=== PATIENT | female | born 1985 | race African-American/Black ===

== ENCOUNTER 2024-04-17 06:30 | Inpatient (IN) | payer OTHER ==
[2024-04-17] MEDS: ELECTROLYTE-148 SOLN 1,000 ML IV SCH (08:05)
[2024-04-17] MEDS ORDERED: OXYTOCIN 30 UNITS in 0.9% NS 30 UNIT/500 ML INFUS.BAG IVPB ONE (08:38)
[2024-04-17] MEDS: OXYTOCIN 30 UNITS in 0.9% NS 30 UNIT/500 ML INFUS.BAG IVPB SCH (08:45)
[2024-04-17 08:51] VITALS: BMI 39.0
[2024-04-17 09:03] LABS: BASO % 0.2 % (0-2.0); EOS % 0.8 % (0-4.5); HEMATOCRIT 38.3 % (32.4-45.2); MCHC 34.1 g/dl (32.0-36.0); MEAN CELL VOLUME 93.8 fl (80-96); MEAN PLT VOLUME 8.1 fl (7.5-11.1); MONO % 10.1 % (3.8-10.2); NEUT % 77.9 % (42.8-82.8); PLATELET COUNT 153 10^3/uL (134-434); RBC 4.08 M/mm3 (3.60-5.2); RDW 14.5 % (11.6-15.6); WHITE BLOOD COUNT 8.5 K/mm3 (4.0-10.0)
[2024-04-17 09:04] LABS: INR 0.98 (0.83-1.09); PROTHROMBIN TIME (PATIENT) 11.3 SEC (9.7-13.0)
[2024-04-17 09:06] LABS: ACTIVATED PTT 30.4 SECONDS (25.2-36.5)
[2024-04-17 09:24] LABS: POTASSIUM 4.1 mmol/L (3.5-5.1)
[2024-04-17 09:25] LABS: BLOOD UREA NITROGEN 6.5 mg/dL (7-18); CALCIUM 8.7 mg/dL (8.5-10.1)
[2024-04-17 09:29] LABS: CREATININE 0.6 mg/dL (0.55-1.3)
[2024-04-17 09:43] LABS: SYPHILIS W/ RPR CONF NON-REACTIVE (NONREACTIVE)
[2024-04-17 10:12] LABS: HIV INTERPRETATION NEGATIVE (NEGATIVE)
[2024-04-17] MEDS ORDERED: FENTANYL/BUPIVACAINE/NS/PF - PCEA - 50 ML DISP.SYRIN EP ONE ×2 (16:23→21:10)
[2024-04-17] MEDS ORDERED: BUPIVACAINE HCL/PF 0.25% (2.5MG/ML) 10 ML VIAL ONE (16:39)
[2024-04-17] MEDS: FENTANYL/BUPIVACAINE/NS/PF - PCEA - 50 ML DISP.SYRIN EP SCH (17:00)
[2024-04-17] MEDS ORDERED: NALOXONE HCL 0.4 MG/ML VIAL IVPUSH PRN (17:06)
[2024-04-17] MEDS ORDERED: OXYTOCIN 20 UNITS in 0.9% NS 20 UNIT/1,000 ML INFUS.BAG IV ONE (23:51)
[2024-04-18] MEDS ORDERED: LIDOCAINE HCL 1% PRESERVATIVE FREE - 30ML VIAL ONE (01:49)
[2024-04-18] MEDS: OXYTOCIN 20 UNITS in 0.9% NS 20 UNIT/1,000 ML INFUS.BAG IV SCH (02:15)
[2024-04-18] MEDS ORDERED: BISACODYL 10 MG SUPP.RECT RC PRN (02:34)
[2024-04-18] MEDS ORDERED: METHYLERGONOVINE MALEATE 0.2 MG/1 ML AMP IM PRN (02:34)
[2024-04-18] MEDS ORDERED: ACETAMINOPHEN 325 MG TABLET (FP) PO PRN (02:34)
[2024-04-18] MEDS ORDERED: oxyCODONE HCL 5 MG TABLET PO PRN (02:34)
[2024-04-18] MEDS ORDERED: BENZOCAINE 28 GM HEMORRHOIDAL OINTMENT TP PRN (02:34)
[2024-04-18] MEDS: BUTORPHANOL TARTRATE 1 MG/ML VIAL IVPB ONE (03:51)
[2024-04-18] MEDS: PROMETHAZINE HCL 25 MG/1 ML VIAL IVPB ONE (03:51)
[2024-04-18 08:30] LABS: BASO % 0.1 % (0-2.0); EOS % 0.1 % (0-4.5); HEMATOCRIT 38.9 % (32.4-45.2); HEMOGLOBIN 13.4 GM/dL (10.7-15.3); LYMPH % 4.5 % (8-40); MCH 32.1 pg (25.7-33.7); MCHC 34.4 g/dl (32.0-36.0); MEAN CELL VOLUME 93.4 fl (80-96); MONO % 7.2 % (3.8-10.2); NEUT % 88.1 % (42.8-82.8); PLATELET COUNT 160 10^3/uL (134-434); RBC 4.16 M/mm3 (3.60-5.2); RDW 14.9 % (11.6-15.6); WHITE BLOOD COUNT 17.7 K/mm3 (4.0-10.0)
[2024-04-18] MEDS: IBUPROFEN 600 MG TABLET (FP) PO PRN (09:23)
[2024-04-18] MEDS: FERROUS SO4 325 MG TABLET (FP) PO SCH (09:23)
[2024-04-18] MEDS: PRENATAL VITAMINS W/ FOLIC ACID TABLET (FP) PO SCH (09:23)
[2024-04-19] MEDS: BENZOCAINE 20% 57 GM BOTTLE TP PRN (05:09)
[2024-04-19] MEDS: WITCH HAZEL 50% (TUCKS) 40 PAD/JAR PAD TP PRN (05:09)
[2024-04-19] MEDS: SENNOSIDES/DOCUSATE COMBO (SENNA PLUS) TABLET (UD) PO PRN (22:11)
[2024-04-20 10:35] VITALS: BP 100/67; PULSE 94; RESP 17; TEMP 98.1
== END 2024-04-20 11:55 | disposition home or self-care (01) | DRG 807 ==
LOC: JLDR 06:30 → J3W 04-18 04:33
PROVIDERS: ADMIT Obstetrics & Gynecology; ATTEND Obstetrics & Gynecology
PROC: 10E0XZZ Delivery of Products of Conception, External Approach (ICD-10-PCS; principal; 2024-04-18)
PROC: 0W8NXZZ Division of Female Perineum, External Approach (ICD-10-PCS; 2024-04-18)
DX: O48.0 Post-term pregnancy (principal); Z3A.41 41 weeks gestation of pregnancy; Z37.0 Single live birth
CPT/HCPCS: 36415; 59409; 80048; 85025; 85610; 85730; 86780; 86803; 86850; 86900; 86901; 87389